=== PATIENT | male | born 1940 | race Caucasian/White ===

== ENCOUNTER 2020-10-30 09:30 | Day surgery (SDC) | payer MEDICARE ==
[2020-10-29 14:53] LABS: ALANINE AMINOTRANSFERASE 31 U/L (12-78); ALBUMIN 3.5 g/dL (3.4-5.0); ANION GAP 4 mmol/L (5-15); CALCIUM 9.2 mg/dL (8.5-10.1); CHLORIDE 113 mmol/L (98-107); CREATININE 1.38 mg/dL (0.7-1.3)
[2020-10-29 14:56] LABS: ALKALINE PHOSPHATASE 60 U/L (45-117); BILIRUBIN,TOTAL 0.4 mg/dL (0.2-1.0); TOTAL PROTEIN 6.7 g/dL (6.4-8.2)
[~2020-10-30] VITALS: Ht 175.3 cm; Wt 80.9 kg
[~2020-10-30 09:30] MED LIST: ACAI500C PO; ALLO100T30 PO; ATEN50TA41 PO; CALC500T93 PO; CINN500C2 PO; CLOP75TA PO; FAMO-79 PO; FINA5TAB4 PO; FLAX10004 PO; FLUT9.9S NAS; GRAP50CA PO; HYDR30CR80 TP; HYLANDS PO; LORA10TA75 PO; METH479P PO; POTA10TA31 PO; PRED5TAB PO; SIMV10TA18 PO; TADA5TAB2 PO; TRIA15CR53 TP; TURM538C PO; UBID100C24 PO; VALS1TAB30 PO; ZOLP5TAB6 PO
[2020-10-30] MEDS ORDERED: FENTANYL PF 250 MCG/5ML ONE (09:31)
[2020-10-30] MEDS ORDERED: BUPIVACAINE/PF 0.5% ONE (09:46)
[2020-10-30] MEDS ORDERED: EPINEPHRINE 1 MG/ML, 1ML ONE (09:46)
[2020-10-30] MEDS ORDERED: CHLORHEXIDINE 15 ML UDC ONE (09:53)
[2020-10-30 09:55] VITALS: BP 165/83
[2020-10-30] MEDS ORDERED: PROMETHAZINE 25 MG/ML, 1ML IVPush PRN (10:00)
[2020-10-30] MEDS ORDERED: hydrALAzine 20 MG/ML, 1ML IV PRN (10:00)
[2020-10-30] MEDS ORDERED: LABETALOL 5MG/ML, 20ML IV PRN (10:00)
[2020-10-30] MEDS ORDERED: HALOPERIDOL 5 MG/ML IV PRN (10:00)
[2020-10-30] MEDS ORDERED: HYDROmorphone 1 MG/ML, 1ML INJ IVPush PRN (10:00)
[2020-10-30] MEDS ORDERED: FENTANYL PF 100 MCG/2ML IV PRN (10:00)
[2020-10-30] MEDS ORDERED: DIPHENHYDRAMINE 50 MG/ML, 1ML IVPush PRN (10:00)
[2020-10-30] MEDS ORDERED: CHLORHEXIDINE 15 ML UDC PO ONE (10:00)
[2020-10-30] MEDS ORDERED: MEPERIDINE/PF 25MG/0.5ML IVPush PRN (10:00)
[2020-10-30] MEDS ORDERED: OXYcodone 5 MG/5 ML ORAL.SOL UDC PO PRN (10:00)
[2020-10-30] MEDS ORDERED: LACTATED RINGERS 1,000 ML IV SCH (10:00)
[2020-10-30] MEDS ORDERED: ACETAMINOPHEN 325 MG TABLET PO PRN (10:00)
[2020-10-30] MEDS ORDERED: GLYCOPYRROLATE 0.2MG/1ML, 5ML ONE (11:08)
[2020-10-30] MEDS ORDERED: DEXAMETHASONE 4 MG/ML, 1ML ONE (11:08)
[2020-10-30] MEDS ORDERED: CEFAZOLIN 1,000 MG ONE (11:08)
[2020-10-30] MEDS ORDERED: ONDANSETRON 2MG/ML, 2ML ONE (11:08)
[2020-10-30] MEDS ORDERED: SUCCINYLCHOLINE 20 MG/ML, 10ML ONE (11:08)
[2020-10-30] MEDS ORDERED: ROCURONIUM 10MG/ML,5ML ONE (11:08)
[2020-10-30] MEDS ORDERED: PROPOFOL 10 MG/ML, 20ML ONE (11:08)
[2020-10-30] MEDS ORDERED: NEOSTIGMINE 1 MG/ML, 10ML ONE (11:08)
[2020-10-30] MEDS ORDERED: OXYC5TAB2 PO (11:28)
[2020-10-30] MEDS ORDERED: ACETAMINOPHEN 650 MG/20.3 ML UDC ONE (11:40)
[2020-10-30] MEDS ORDERED: FENTANYL PF 100 MCG/2ML ONE (11:40)
[2020-10-30] MEDS ORDERED: OXYcodone 5 MG/5 ML ORAL.SOL UDC ONE (11:41)
== END 2020-10-30 16:20 | disposition home or self-care (01) ==
LOC: OUT 09:30
PROVIDERS: ATTEND Surgery
DX: K40.90 Unilateral inguinal hernia, without obstruction or gangrene, not specified as recurrent (principal); K42.9 Umbilical hernia without obstruction or gangrene; M35.3 Polymyalgia rheumatica; I10 Essential (primary) hypertension; K21.9 Gastro-esophageal reflux disease without esophagitis; Z20.822 Contact with and (suspected) exposure to COVID-19; Z79.899 Other long term (current) drug therapy; Z86.73 Personal history of transient ischemic attack (TIA), and cerebral infarction without residual deficits
CPT/HCPCS: 36415; 49585; 49650; 80053; 93005; C1781; J0171; J0330; J0690; J1100; J2405; J2704; J2710; J3010; U0003; U0005